=== PATIENT | female | born 1980 | race Caucasian/White ===

== ENCOUNTER 2018-03-29 12:16 | Emergency (ER) | payer BC, MEDICAID ==
[~2018-03-29] VITALS: Ht 170.2 cm; Wt 78.2 kg
[2018-03-29 12:32] VITALS: BP 154/103
== END 2018-03-29 15:14 | disposition home or self-care (01) ==
LOC: ED 14:48
DX: J01.00 Acute maxillary sinusitis, unspecified (principal); J01.10 Acute frontal sinusitis, unspecified; H10.233 Serous conjunctivitis, except viral, bilateral
CPT/HCPCS: 99283

== ENCOUNTER 2018-12-21 22:58 | Emergency (ER) | payer BC ==
[~2018-12-21] VITALS: Ht 167.6 cm; Wt 81.4 kg
[2018-12-21 22:59] VITALS: BP 147/102
--- NOTE | 2018-12-21 23:12 | NUR ---
PT REPORTS PAINFUL URINATION X FRIDAY. WORSENING PAIN/BLOOD IN URINE/L FLANK PAIN X TODAY. DENIES N/V/FEVER
--- NOTE | 2018-12-21 23:34 | NUR ---
UA COLLECTED AND SENT. PT REQUESTING NON-NARCOTIC PAIN MEDS
[2018-12-21 23:49] LABS: MICROSCOPIC INDICATED
[2018-12-21 23:50] LABS: HCG UR SG 1.018 (1.003-1.030)
[2018-12-21 23:55] LABS: CULTURE INDICATED? YES
[2018-12-22] MEDS ORDERED: CEFTRIAXONE 1,000 MG ONE (00:18)
[2018-12-22] MEDS ORDERED: IBUPROFEN 600 MG TABLET PO ONE (00:30)
[2018-12-22] MEDS ORDERED: CEFTRIAXONE 1,000 MG IM ONE (00:30)
[2018-12-22] MEDS ORDERED: ONDANSETRON ODT 4 MG PO ONE (00:30)
[2018-12-22] MEDS ORDERED: IBUPROFEN 600 MG TABLET ONE (00:39)
--- NOTE | 2018-12-22 00:45 | NUR ---
PT MEDICATED PER EMAR W/ ABX. PT ASKED TO DRESS. AWAITING OBS PERIOD FOR DC
--- NOTE | 2018-12-22 00:58 | NUR ---
NO S/S OF ABX RXN NOTED. DC EDUCATION PROVIDED, PT DEMONSTRATES UNDERSTANDING. PT AMBULATED STEADILY TO DC WITH RN
== END 2018-12-22 01:00 | disposition home or self-care (01) ==
LOC: ED 23:37
DX: N30.01 Acute cystitis with hematuria (principal); Z88.1 Allergy status to other antibiotic agents
CPT/HCPCS: 81001; 81025; 87077; 87086; 96372; 99283; J0696; 87186

== ENCOUNTER 2019-03-14 16:48 | Emergency (ER) | payer BC, MEDICAID ==
[~2019-03-14] VITALS: Ht 160 cm; Wt 68.5 kg
[2019-03-14] MEDS ORDERED: ONDANSETRON 2MG/ML, 2ML ONE (17:27)
[2019-03-14] MEDS ORDERED: FAMOTIDINE 20 MG/2 ML ONE (17:28)
[2019-03-14] MEDS ORDERED: FAMOTIDINE 20 MG/2 ML IVP ONE (17:30)
[2019-03-14] MEDS ORDERED: SODIUM CHLORIDE FLUSH 10ML SYR IVF ONE (17:30)
[2019-03-14] MEDS ORDERED: PLEASE ENTER HEIGHT AND WEIGHT MC SCH (17:30)
[2019-03-14] MEDS ORDERED: SODIUM CHLORIDE 0.9% 1,000ML IVBOLUS ONE (17:30)
[2019-03-14] MEDS ORDERED: ONDANSETRON 2MG/ML, 2ML IVPush ONE (17:30)
[2019-03-14 17:44] LABS: ALANINE AMINOTRANSFERASE 21 U/L (12-78); ALBUMIN 4.4 g/dL (3.4-5.0); ANION GAP 7 mmol/L (5-15); CHLORIDE 109 mmol/L (98-107); CREATININE 0.81 mg/dL (0.55-1.02)
[2019-03-14 17:48] LABS: ALKALINE PHOSPHATASE 70 U/L (45-117); BILIRUBIN,TOTAL 1.1 mg/dL (0.2-1.0); TOTAL PROTEIN 8.2 g/dL (6.4-8.2)
--- NOTE | 2019-03-14 18:34 | NUR ---
pt provided with sprite and crackers.
[2019-03-14 18:47] VITALS: BP 141/73
--- NOTE | 2019-03-14 18:47 | NUR ---
PT TOLERATING PO WELL.
[2019-03-14] MEDS ORDERED: IBUPROFEN 800 MG TABLET ONE (18:53)
[2019-03-14] MEDS ORDERED: IBUPROFEN 800 MG TABLET PO ONE (19:00)
== END 2019-03-14 19:12 | disposition home or self-care (01) ==
LOC: ED 16:58
DX: K29.20 Alcoholic gastritis without bleeding (principal); F10.10 Alcohol abuse, uncomplicated; R11.2 Nausea with vomiting, unspecified
CPT/HCPCS: 36415; 80053; 83690; 84703; 96361; 96374; 96375; 99283; J2405; J3490; J7030

== ENCOUNTER 2021-05-21 19:50 | Emergency (ER) | payer MEDICAID ==
[~2021-05-21] VITALS: Ht 170.2 cm; Wt 85.5 kg
[2021-05-21 23:16] VITALS: BP 133/88
== END 2021-05-22 00:40 | disposition home or self-care (01) ==
LOC: ED 20:00
DX: N30.01 Acute cystitis with hematuria (principal); L50.0 Allergic urticaria; R21 Rash and other nonspecific skin eruption; I10 Essential (primary) hypertension; E78.5 Hyperlipidemia, unspecified
CPT/HCPCS: 36415; 74177; 80053; 81001; 84703; 85025; 87077; 87086; 87186; 96365; 96375; 99285; J0696; J1200; J2270; J2405; Q9967